=== PATIENT | female | born 1955 | race Caucasian/White ===

== ENCOUNTER 2016-12-11 09:35 | Outpatient (CLI) | payer OTHER ==
[2016-12-11 12:26] LABS: #Eosinphils 0.2 thou/uL (0.0-0.7); #Lymphocytes 1.6 thou/uL (1.20-3.40); #Monocytes 0.4 thou/uL (0.11-0.59); #Neutrophils 2.5 thou/uL (1.40-6.50); %Eosinophils 3.2 % (0.0-10.0); %Lymphocytes 34.8 % (21.0-51.0); %Monocytes 8.1 % (0.0-10.0); Hematocrit 30.1 % (36.0-47.0); Mean Platelet Volume 6.9 fL (7.4-10.4); Red Blood Cell (RBC) Count 3.66 mill/uL (4.20-5.40); White Blood Cell (WBC) Count 4.7 thou/uL (4.8-10.8)
[2016-12-11 12:56] LABS: ALT (SGPT) 41 U/L (0-55); AST (SGOT) 29 U/L (5-34); Alkaline Phosphatase 68 U/L (40-150); Anion Gap 15 mmol/L (10-20); BUN (Urea Nitrogen) 31 mg/dL (9.8-20.1); Bilirubin, Direct 0.2 mg/dL (0.1-0.3); Bilirubin, Total 0.4 mg/dL (0.2-1.2); Calc. Creatinine Clearance 0 mL/min (70-130); Calcium 9.2 mg/dL (7.8-10.44); Carbon Dioxide 25 mmol/L (23-31); Chloride 106 mmol/L (98-107); Estimated GFR-MDRD 34; LDL Cholesterol, Calculated 106 mg/dL; Protein, Total 6.6 g/dL (5.8-8.1)
[2016-12-11 12:58] LABS: Hemoglobin A1c 5.3 % (4.0-6.0)
== END 2016-12-11 09:36 | disposition home or self-care (01) ==
LOC: NAVSJIPCSP 09:35
PROVIDERS: ATTEND Family Medicine
DX: E03.9 Hypothyroidism, unspecified (principal); E11.9 Type 2 diabetes mellitus without complications; I10 Essential (primary) hypertension; Z79.899 Other long term (current) drug therapy
CPT/HCPCS: 36415; 80048; 80061; 80076; 83036; 84443; 85025

== ENCOUNTER 2017-05-09 08:48 | Outpatient (CLI) | payer OTHER ==
[2017-05-09 12:24] LABS: #Eosinphils 0.1 thou/uL (0.0-0.7); #Lymphocytes 1.8 thou/uL (1.20-3.40); #Monocytes 0.4 thou/uL (0.11-0.59); #Neutrophils 3.1 thou/uL (1.40-6.50); %Basophils 0.9 % (0.0-1.0); %Eosinophils 2.5 % (0.0-10.0); %Lymphocytes 32.6 % (21.0-51.0); Hemoglobin 9.1 g/dL (12.0-16.0); Mean Corpuscular HGB CONC 32.3 g/dL (32.0-36.0); Mean Corpuscular Hemoglobin 25.6 pg (27.0-31.0); Mean Corpuscular Volume 79.1 fl (81.0-99.0); Mean Platelet Volume 6.8 fL (7.4-10.4); Platelet Count 247 thou/uL (130-400); RBC Distribution Width 15.7 % (11.5-14.5); Red Blood Cell (RBC) Count 3.56 mill/uL (4.20-5.40); White Blood Cell (WBC) Count 5.5 thou/uL (4.8-10.8)
[2017-05-09 12:54] LABS: ALT (SGPT) 34 U/L (8-55); AST (SGOT) 30 U/L (5-34); Albumin 3.9 g/dL (3.4-4.8); Alkaline Phosphatase 69 U/L (40-150); Anion Gap 18 mmol/L (10-20); BUN (Urea Nitrogen) 26 mg/dL (9.8-20.1); Bilirubin, Direct 0.2 mg/dL (0.1-0.3); Bilirubin, Total 0.3 mg/dL (0.2-1.2); Calc. Creatinine Clearance 0 mL/min (70-130); Calcium 9.3 mg/dL (7.8-10.44); Carbon Dioxide 24 mmol/L (23-31); Cardiac Risk 3.7 (Less than 4.5); Chloride 105 mmol/L (98-107); Cholesterol 183 mg/dl (< 200 Desired); Estimated GFR-MDRD 35; Glucose 92 mg/dL (80-115); HDL Cholesterol 50 mg/dL (>60 Neg Risk); LDL Cholesterol, Calculated 108 mg/dL; Potassium 4.5 mmol/L (3.5-5.1); Protein, Total 6.8 g/dL (6.0-8.3); Sodium 142 mmol/L (136-145); Triglycerides 124 mg/dL (Less than 150)
[2017-05-09 13:00] LABS: Hemoglobin A1c 5.4 % (4.0-6.0)
== END 2017-05-09 08:49 | disposition home or self-care (01) ==
LOC: NAVSJIPCSP 08:48
PROVIDERS: ATTEND Family Medicine
DX: M17.9 Osteoarthritis of knee, unspecified (principal); I10 Essential (primary) hypertension; E11.9 Type 2 diabetes mellitus without complications; E03.9 Hypothyroidism, unspecified; J40 Bronchitis, not specified as acute or chronic; K21.9 Gastro-esophageal reflux disease without esophagitis; R74.8 Abnormal levels of other serum enzymes; J30.9 Allergic rhinitis, unspecified; Z79.899 Other long term (current) drug therapy
CPT/HCPCS: 36415; 80048; 80061; 80076; 82607; 83036; 84443; 85025

== ENCOUNTER 2017-10-23 10:30 | Outpatient (CLI) | payer OTHER ==
--- NOTE | 2017-10-23 12:04 | RAD ---
PA AND LATERAL CHEST: Date: 10-23-17 History: Upper respiratory tract infection. Comparison: 04-28-13 FINDINGS: Cardiac fat pad is seen at the right lung base. Cardiac silhouette is otherwise within normal limits. Lungs are clear. Interstitial and parenchymal changes at the right lung base are no longer visualize d. Lungs are clear on today's examination. There are degenerative changes seen in the spine. IMPRESSION: No acute cardiopulmonary process. POS: [facility]
== END 2017-10-23 10:31 | disposition home or self-care (01) ==
LOC: NAV RAD 10:30
PROVIDERS: ATTEND Family Medicine
DX: J06.9 Acute upper respiratory infection, unspecified (principal)
CPT/HCPCS: 36415; 71020; 80048; 85025

== ENCOUNTER 2017-10-23 10:55 | Outpatient (CLI) | payer OTHER ==
[2017-10-23 10:59] LABS: Hemoglobin 10.2 g/dL (12.0-16.0); Red Blood Cell (RBC) Count 3.55 mill/uL (4.20-5.40); White Blood Cell (WBC) Count 8.1 thou/uL (4.8-10.8)
[2017-10-23 11:00] LABS: #Basophils 0.1 thou/uL (0.0-0.2); #Eosinphils 0.1 thou/uL (0.0-0.7); #Lymphocytes 2.8 thou/uL (1.20-3.40); #Monocytes 0.5 thou/uL (0.11-0.59); #Neutrophils 4.6 thou/uL (1.40-6.50); %Basophils 1.1 % (0.0-1.0); %Eosinophils 1.4 % (0.0-10.0); %Lymphocytes 34.3 % (21.0-51.0); %Monocytes 6.7 % (0.0-10.0); %Neutrophils 56.5 % (42.0-75.0); Mean Corpuscular HGB CONC 31.5 g/dL (32.0-36.0); Mean Corpuscular Hemoglobin 28.9 pg (27.0-31.0); Mean Corpuscular Volume 91.9 fL (81.0-99.0); Platelet Count 187 thou/uL (130-400); RBC Distribution Width 13.3 % (11.5-14.5)
[2017-10-23 11:12] LABS: Anion Gap 16 mmol/L (10-20); BUN (Urea Nitrogen) 27 mg/dL (9.8-20.1); Calc. Creatinine Clearance 0 mL/min (70-130); Calcium 9.5 mg/dL (7.8-10.44); Carbon Dioxide 26 mmol/L (23-31); Chloride 106 mmol/L (98-107); Estimated GFR-MDRD 36; Glucose 87 mg/dL (80-115); Potassium 4.3 mmol/L (3.5-5.1); Sodium 144 mmol/L (136-145)
== END 2017-10-23 10:56 | disposition home or self-care (01) ==
LOC: NAV LAB 10:55
PROVIDERS: ATTEND Family Medicine
DX: J06.9 Acute upper respiratory infection, unspecified (principal)
CPT/HCPCS: 36415; 80048; 85025

== ENCOUNTER 2018-08-15 16:30 | Outpatient (CLI) | payer MEDICARE ==
--- NOTE | 2018-08-15 17:59 | ULT ---
RENAL ULTRASOUND: 08/15/18 HISTORY: Stage III renal failure. Real time imaging of the right and left kidneys were performed. The right kidney measures 11.8, the l eft kidney 10.8 cm in size. No cysts or masses are identified. No obstruction. Bladder is empty at th e time of this exam. IMPRESSION: Unremarkable renal ultrasound. POS: [facility]
== END 2018-08-15 16:31 | disposition home or self-care (01) ==
LOC: NAV ULT 16:30
PROVIDERS: ATTEND Internal Medicine Nephrology
DX: N18.3 Chronic kidney disease, stage 3 (moderate) (principal)
CPT/HCPCS: 76770

== ENCOUNTER 2019-06-20 10:32 | Emergency (ER) | payer MEDICARE ==
--- NOTE | 2019-06-20 11:02 | RAD ---
LEFT HUMERUS 2 VIEWS: HISTORY: Fall, left shoulder and arm pain FINDINGS: There is anterior dislocation at the glenohumeral joint with the displaced fracture of the greater t uberosity.
[2019-06-20] MEDS ORDERED: Ondansetron PF 4 MG/2 ML Vial ONE (11:28)
[2019-06-20] MEDS ORDERED: Fentanyl 100 MCG/2 ML VIAL ONE ×3 (11:28→12:31)
[2019-06-20 11:46] LABS: #Basophils 0.1 thou/uL (0.0-0.2); #Eosinphils 0.1 thou/uL (0.0-0.7); #Monocytes 0.5 thou/uL (0.11-0.59); #Neutrophils 3.9 thou/uL (1.40-6.50); %Basophils 1.1 % (0.0-1.0); %Lymphocytes 18.1 % (21.0-51.0); %Monocytes 8.5 % (0.0-10.0); %Neutrophils 71.3 % (42.0-75.0); Mean Corpuscular HGB CONC 32.8 g/dL (32.0-36.0); Mean Corpuscular Hemoglobin 28.3 pg (27.0-31.0); Mean Corpuscular Volume 86.5 fL (78.0-98.0); Mean Platelet Volume 7.9 fL (7.4-10.4); Platelet Count 138 thou/uL (130-400); RBC Distribution Width 12.6 % (11.5-14.5); Red Blood Cell (RBC) Count 4.23 mill/uL (4.20-5.40); White Blood Cell (WBC) Count 5.5 thou/uL (4.8-10.8)
[2019-06-20 11:57] LABS: Anion Gap 19 mmol/L (10-20); BUN (Urea Nitrogen) 18 mg/dL (9.8-20.1); Calc. Creatinine Clearance 0 mL/min (70-130); Calcium 9.6 mg/dL (7.8-10.44); Carbon Dioxide 25 mmol/L (23-31); Chloride 102 mmol/L (98-107); Estimated GFR-MDRD 39; Glucose 143 mg/dL (80-115); Potassium 3.8 mmol/L (3.5-5.1); Sodium 142 mmol/L (136-145)
--- NOTE | 2019-06-20 13:18 | RAD ---
LEFT SHOULDER 3 VIEWS: Date: 06/20/19 HISTORY: Fall with injury. FINDINGS: There is an anterior shoulder dislocation. There is a fracture fragment probably representing a displ aced fragment from the humeral head. AC joint normally aligned. IMPRESSION: Anterior shoulder dislocation with fracture. POS: [facility]
== END 2019-06-20 13:37 | disposition short-term general hospital (02) ==
LOC: NAV ERS 10:32
DX: S42.202A Unspecified fracture of upper end of left humerus, initial encounter for closed fracture (principal); E11.9 Type 2 diabetes mellitus without complications; E03.9 Hypothyroidism, unspecified; K21.9 Gastro-esophageal reflux disease without esophagitis; I10 Essential (primary) hypertension; Z79.899 Other long term (current) drug therapy; Z79.84 Long term (current) use of oral hypoglycemic drugs; W01.190A Fall on same level from slipping, tripping and stumbling with subsequent striking against furniture, initial encounter
CPT/HCPCS: 23650; 80048; 85025; 96374; 96375; 96376; J2405; J3010

== ENCOUNTER 2019-09-23 17:21 | Outpatient (CLI) | payer MEDICARE ==
[2019-09-23 17:47] LABS: #Eosinphils 0.1 thou/uL (0.0-0.7); #Lymphocytes 1.7 thou/uL (1.20-3.40); #Monocytes 0.4 thou/uL (0.11-0.59); #Neutrophils 2.9 thou/uL (1.40-6.50); %Basophils 0.9 % (0.0-1.0); %Eosinophils 1.9 % (0.0-10.0); %Monocytes 7.8 % (0.0-10.0); %Neutrophils 56.5 % (42.0-75.0); Hemoglobin 10.7 g/dL (12.0-16.0); Mean Corpuscular Hemoglobin 29.9 pg (27.0-31.0); Mean Corpuscular Volume 90.5 fL (78.0-98.0); Mean Platelet Volume 8.2 fL (7.4-10.4); Platelet Count 137 thou/uL (130-400); RBC Distribution Width 14.8 % (11.5-14.5); Red Blood Cell (RBC) Count 3.58 mill/uL (4.20-5.40); White Blood Cell (WBC) Count 5.2 thou/uL (4.8-10.8)
[2019-09-23 18:01] LABS: ALT (SGPT) 56 U/L (8-55); AST (SGOT) 29 U/L (5-34); Albumin 4.2 g/dL (3.4-4.8); Alkaline Phosphatase 73 U/L (40-110); Anion Gap 16 mmol/L (10-20); BUN (Urea Nitrogen) 35 mg/dL (9.8-20.1); Bilirubin, Total 0.4 mg/dL (0.2-1.2); Calc. Creatinine Clearance 0 mL/min (70-130); Carbon Dioxide 26 mmol/L (23-31); Chloride 107 mmol/L (98-107); Estimated GFR-MDRD 32; Globulin 2.2 g/dL (2.4-3.5); Glucose 109 mg/dL (80-115); Potassium 4.6 mmol/L (3.5-5.1); Protein, Total 6.4 g/dL (6.0-8.3); Sodium 144 mmol/L (136-145)
== END 2019-09-23 17:22 | disposition home or self-care (01) ==
LOC: NAV LAB 17:21
PROVIDERS: ATTEND Family Medicine
DX: N18.3 Chronic kidney disease, stage 3 (moderate) (principal); D63.1 Anemia in chronic kidney disease; D50.9 Iron deficiency anemia, unspecified; R74.8 Abnormal levels of other serum enzymes
CPT/HCPCS: 80053; 85025

== ENCOUNTER 2023-02-02 23:52 | Emergency (ER) | payer MEDICARE ==
[2023-02-03] MEDS ORDERED: Ipratropium/Albuterol 3 ML NEB ONE ×2 (00:03→01:17)
[2023-02-03] MEDS ORDERED: methylPREDNISolone Sod Succ/PF 125 MG/2 ML VIAL ONE (00:09)
[2023-02-03 00:20] LABS: #Basophils 0.1 thou/uL (0.0-0.2); #Lymphocytes 1.2 thou/uL (1.20-3.40); #Monocytes 1.4 thou/uL (0.11-0.59); #Neutrophils 13.4 thou/uL (1.40-6.50); %Basophils 0.6 % (0.0-1.0); %Eosinophils 0.2 % (0.0-10.0); %Lymphocytes 7.5 % (21.0-51.0); %Monocytes 8.6 % (0.0-10.0); %Neutrophils 83.1 % (42.0-75.0); Hemoglobin 11.7 g/dL (12.0-16.0); Mean Corpuscular HGB CONC 33.6 g/dL (32.0-36.0); Mean Corpuscular Hemoglobin 29.5 pg (27.0-31.0); Mean Corpuscular Volume 87.7 fl (78.0-98.0); Mean Platelet Volume 7.4 fL (7.4-10.4); Platelet Count 256 10x3/uL (130-400); RBC Distribution Width 11.9 % (11.5-14.5); Red Blood Cell (RBC) Count 3.97 mill/uL (4.20-5.40); White Blood Cell (WBC) Count 16.2 10x3/uL (4.8-10.8)
[2023-02-03] MEDS ORDERED: Acetaminophen 325 MG Suppository ONE (00:31)
[2023-02-03 00:42] LABS: Base Excess-Venous -3.6 mmol/L (-2.0 to 3.0); Bicarbonate (HCO3v) 20.5 mmol/L (22.0-28.0); CO2 Tension (PvCO2) 33.2 mmHg (42.0-51.0); Calcium, Ionized 1.08 mmol/L (1.15-1.33); Chloride 105 mmol/L (98-107); Potassium 3.6 mmol/L (3.5-5.1); Sodium 137 mmol/L (138-145); T. Carbon Dioxide 21.5 mmol/L (22.0-28.0); vO2 Saturation-calc 90.3 % (60.0-85.0)
[2023-02-03 00:54] LABS: ALT (SGPT) 22 U/L (8-55); AST (SGOT) 19 U/L (5-34); Albumin 4.2 g/dL (3.4-4.8); Alkaline Phosphatase 77 U/L (40-110); Anion Gap 22 mmol/L (10-20); BUN (Urea Nitrogen) 27 mg/dL (9.8-20.1); Bilirubin, Total 1.2 mg/dL (0.2-1.2); Calc. Creatinine Clearance 0 mL/min (70-130); Calcium 9.4 mg/dL (7.8-10.44); Carbon Dioxide 18 mmol/L (23-31); Chloride 104 mmol/L (98-107); Estimated GFR 25; Globulin 3.2 g/dL (2.4-3.5); Glucose 203 mg/dL (80-115); Potassium 3.8 mmol/L (3.5-5.1); Protein, Total 7.4 g/dL (5.8-8.1); Sodium 140 mmol/L (136-145)
[2023-02-03] MEDS ORDERED: Sodium Chloride 0.9% 1,000 ML ONE (01:10)
[2023-02-03 01:11] LABS: CKMB 0.9 ng/mL (0-6.6)
[2023-02-03 02:07] LABS: SARS-CoV-2 NAA Rapid Test Not Detected (NotDetected)
== END 2023-02-03 01:36 | disposition home or self-care (01) ==
LOC: NAV ERS 23:52
DX: A41.9 Sepsis, unspecified organism (principal); J18.9 Pneumonia, unspecified organism; N28.9 Disorder of kidney and ureter, unspecified; R79.89 Other specified abnormal findings of blood chemistry; R77.8 Other specified abnormalities of plasma proteins; I10 Essential (primary) hypertension; E03.9 Hypothyroidism, unspecified; K21.9 Gastro-esophageal reflux disease without esophagitis; M10.9 Gout, unspecified; Z20.822 Contact with and (suspected) exposure to COVID-19; Z79.899 Other long term (current) drug therapy
CPT/HCPCS: 71045; 80053; 82330; 82553; 82803; 83605; 83880; 84443; 84484; 85025; 85379; 86140; 87040; 93005; 96365; 96375; J1956; J2930; J7050; J7620

== ENCOUNTER 2023-04-05 08:11 | Outpatient (CLI) | payer MEDICARE | END 2023-04-05 08:12 | disposition home or self-care (01) | LOC: NAV RAD 08:11 | PROVIDERS: ATTEND Family Medicine | DX: R06.00 Dyspnea, unspecified (principal); R09.89 Other specified symptoms and signs involving the circulatory and respiratory systems | CPT/HCPCS: 71046 ==